=== PATIENT | female | born 1970 | race Caucasian/White ===

== ENCOUNTER 2024-04-22 18:38 | Inpatient (IN) | payer OTHER, SELFPAY ==
[2024-04-22 18:40] VITALS: BP 109/45; PULSE 98; RESP 16; TEMP 35.7; O2SAT 96; BMI 33.6
[2024-04-22 19:23] LABS: Absolute Lymphocyte Count 0.49 X10^3/uL (0.83-4.51); Absolute Neutrophil Count 9.5 X10^3/uL (2.0-7.7); Basophil# 0.05 X10^3/uL; Basophil% 0.5 % (0-1); Eosinophil# 0.04 X10^3/uL; Eosinophils% 0.4 % (0-5); Hematocrit 40.2 % (37-47); Hemoglobin 13.1 g/dL (12.0-15.0); Lymphocyte # 0.49 X10^3/ul (0.83-4.51); Lymphocyte % 4.6 % (19-41); Mean Corp Hgb Conc 32.6 g/dL (32-36); Mean Corpuscular Hgb 28.6 pg (27.0-32.0); Mean Corpuscular Volume 87.8 fL (81-99); Mean Platelet Vol. 10.8 fl (6.2-12.0); Monocyte# 0.44 X10^3/uL; Monocyte% 4.2 % (0-10); NRBC Flagged by Analyzer 0 % (0-5); Neutrophil % 89.8 % (47-70); POSITIVE DIFFERENTIAL YES; Platelet Count 132 K/mm3 (150-450); RBC Distribution Width CV 13.4 % (11.6-14.6); Red Blood Count 4.58 M/mm3 (4.2-5.4); White Blood Count 10.6 K/mm3 (4.4-11.0)
[2024-04-22 19:29] LABS: Internal QC Validated? YES +Cl - CLEAR BKGD; Pregnancy, Serum, hCG Quali. NEGATIVE Negative; Record Kit Lot#, Serum Preg. 772476
[2024-04-22 19:31] LABS: Differential Indicated SCAN CRITERIA MET
[2024-04-22 19:36] LABS: ALB/GLOB Ratio 0.8 RATIO (0.9-2.4); AST(SGOT) 10 U/L (15-37); Alanine Aminotransfer ALT/SGPT 21 U/L (13-56); Albumin, Serum 3.3 g/dL (3.2-5.0); Alkaline Phosphatase 71 U/L (45-117); Anion Gap 6 (5-15); BUN 11 mg/dL (7-18); BUN/Creat Ratio 14.7 RATIO (10-20); Chloride 100 mmol/L (98-107); Creatinine, Serum 0.75 mg/dL (0.55-1.02); EST Glomerular Filtration Rate 86 mL/min (>60); Est Glom Filt Rate - Afr Amer 104 mL/min (>60); Estimated Creatinine Clearance 97.03 ml/min; Globulin 3.9 g/dL (2.2-4.2); Glucose 122 mg/dL (74-106); Potassium 3.3 mmol/L (3.5-5.1); Protein, Total 7.2 g/dL (6.4-8.2); Sodium Level 135 mmol/L (136-145)
[2024-04-22 19:51] LABS: Mucous, Urine 0 SEEN /hpf (<or=2+); Red Blood Cells-Urine 0 SEEN /hpf (0-5)
[2024-04-22 19:52] LABS: Color, Urine Yellow (Yellow); Glucose, Dipstick Normal (Normal); Ketone-Dipstick 15 mg/dl (Negative); Leukocyte Esterase-Dipstick 500 /ul (Negative); Nitrite-Dipstick Negative (Negative); Occult Blood-Urine 10 /ul (Negative); Protein-Dipstick 15 mg/dl (Negative); Specific Gravity, Urine 1.005 (1.002-1.030); Urine Bilirubin Dipstick Negative (Negative); Urine Clarity Clear (Clear); Urine Urobilinogen Normal (Normal); Urine pH 6.5 (5.0 - 8.0)
[2024-04-22 20:00] LABS: Anisocytosis RARE; Platelet Estimate SLT DEC (ADEQ); Red Cell Morphology NORM C+C NORMAL (NORM C&C)
[2024-04-22 20:22] LABS: Bacteria RARE /hpf (None Seen); Squamous Epithelial Cells - UA 0-5 SEEN /hpf (5-10); Transitional Epithelial - Ur 0-5 SEEN /hpf (0-5); White Blood Cells 5-10 SEEN /hpf (0-5)
[2024-04-22 20:38] VITALS: BP 130/69; PULSE 93; RESP 16; TEMP 36.1; O2SAT 98
[2024-04-22 22:00] VITALS: BP 128/68; PULSE 94; RESP 18; TEMP 36.7; O2SAT 100
--- NOTE | 2024-04-22 22:34 | CT_ITS ---
EXAM: CT Abdomen And Pelvis W/ Contrast Injection HISTORY: Right sided abd pain TECHNIQUE: Routine protocol CT abdomen pelvis. IV Contrast: IV 100mL Isovue-370 . Oral Contrast: without. Sagittal and coronal images were reconstructed. RADIATION DOSAGE (If Supplied By Facility): CTDIvol = ( 17.99 ) mGy, DLP = ( 1125.45 ) mGycm Individualized dose optimization techniques were used for this CT. COMPARISON: None. LIMITATIONS: None. FINDINGS: LOWER CHEST: Minimal dependent atelectasis in the lung bases. LIVER: Enlarged. Fatty infiltration. GALLBLADDER/BILE DUCTS: Multiple gallstones in the gallbladder including a larger stone in the gallbladder neck. Diffuse marked gallbladder wall thickening, small amount of adjacent fluid and stranding. PANCREAS: Unremarkable. SPLEEN: Unremarkable. ADRENAL GLANDS: Unremarkable. KIDNEYS / URETERS: Unremarkable. BOWEL / MESENTERY: Unremarkable. No bowel obstruction. Several mildly enlarged lymph nodes throughout the mesentery, gastrohepatic, and gastrosplenic. APPENDIX: Identified and normal. No evidence of acute appendicitis. PERITONEUM: No free air. No free fluid. VESSELS: Abdominal aorta is normal caliber. RETROPERITONEUM: Multiple enlarged lymph nodes periaortic and pericaval, about the celiac axis, along the iliac chains. Largest aortocaval node is 1.6 cm in short axis. A cluster of enlarged nodes para-aortic at the level of the left renal vessels, largest 1.3 cm in short axis. REPRODUCTIVE ORGANS: There is a 5.8 x 5 cm low attenuation cystic structure in the right ovary. BLADDER: Unremarkable. ABDOMINAL WALL: Prominent inguinal lymph nodes bilaterally, with a larger node in the right inguinal region. BONES: No acute abnormality. OTHER: None. CT/Abdomen/Pelvis W IV Cont ONLY IMPRESSION: 1. Cholelithiasis with findings consistent with acute cholecystitis. 2. Retroperitoneal and mesenteric adenopathy of unknown etiology. This may be inflammatory, other process such as malignancy or lymphoma not excluded. 3. Right ovarian 6 cm cystic structure. Pelvic ultrasound suggested for further evaluation. Electronically Signed: Sissy Culver MD at 0:48 EDT ,
--- NOTE | 2024-04-22 22:34 | EKG12_ITS ---
Test Reason : Blood Pressure : / mmHG Vent. Rate : 100 BPM Atrial Rate : 100 BPM P-R Int : 148 ms QRS Dur : 094 ms QT Int : 350 ms P-R-T Axes : 055 077 110 degrees QTc Int : 451 ms Normal sinus rhythm Nonspecific ST and T wave abnormality Abnormal ECG Confirmed by JUAN CUTLER, SHIVA ([id number]), editor continuity and script ANITHA POON ([id number]) on 04/26/2024 2:03:58 PM Referred By: Confirmed By:SHIVA MARTINEZ MD
[2024-04-22 23:15] LABS: Lipase 17 U/L (13-75)
--- NOTE | 2024-04-22 23:21 | EX.ED.DYSGE1 ---
HPI History of Present Illness Chief Complaint: Abd Pain Narrative Narrative: Patient is a 53-year-old female with past medical history hypertension who presented to the emergency department the chief complaint of abdominal pain. Patient states that approximately 3 days ago she developed nausea vomiting and some abdominal discomfort. Patient states that she also had some fevers associated with this. She states that she has not had any previous abdominal surgeries. Patient denies any recent sick contacts. Patient rates her pain a 6 out of 10 states that she does not want a pain medication at this point time. [facility] Medical History Hypertension Allergy/AdvReac Type Severity Reaction Status Date / Time No Known Allergies Allergy Verified 04/22/24 18:39 Social History Smoking Status: Smoker, status unknown ROS ROS ED ROS Narrative Constitutional: Complains of fever and chills noted above denies headaches, lightness, dizziness Eyes: Denies double vision blurry vision changes vision Cardiovascular: Denies chest pain or palpitations Respiratory: Denies coughing wheezing shortness of breath Abdomen: Complains of abdominal pain nausea vomiting as noted above. Denies any black tarry stools or any blood in her stool : Denies any painful urination, hematuria and polyuria Neurological: Denies numbness, weakness, tingling Musculoskeletal: Denies back pain Skin: Denies rashes or lesions EXAM Physical Exam Narrative Exam Narrative: General: Patient lying in bed rest comfortably did not appear to be acute distress Head: Atraumatic, normocephalic Eyes: PERRL bilateral, EOMI bilateral, no conjunctival injection noted Neck: Soft, supple, trachea midline Cardiovascular: Regular rate and rhythm no murmurs gallops rubs noted Respiratory: Clear to auscultation bilaterally no rales rhonchi or wheezes noted Abdomen: Soft, nondistended, tender to palpation in the right upper and lower quadrants no rebound or guarding on exam, bowel sounds present x 4 Extremities: +5/5 strength noted in the bilateral upper and lower extremities Neurological: Patient following commands knew that she was at [facility] year is 2023 Skin: Warm, dry, intact Const Vital Signs: 04/22/24 18:40 04/22/24 20:38 04/22/24 22:00 Temperature 96.3 F L 97 F L 98.0 F Temperature Source Temporal Temporal Oral Pulse Rate 98 93 94 Respiratory Rate 16 16 18 Blood Pressure 109/45 L 130/69 H 128/68 H Blood Pressure Mean 66 89 88 Pulse Ox 96 98 100 Oxygen Delivery Method Room Air Room Air Room Air 04/23/24 00:00 04/23/24 00:00 04/23/24 02:00 Temperature 98.3 F 102.0 F H Temperature Source Oral Oral Pulse Rate 90 90 100 Respiratory Rate 16 16 18 Blood Pressure 121/60 H 121/60 H 121/50 H Blood Pressure Mean 80 80 73 Pulse Ox 99 95 Oxygen Delivery Method Room Air Room Air 04/23/24 04:00 Temperature 100.4 F H Temperature Source Oral Pulse Rate 88 Respiratory Rate 16 Blood Pressure 129/63 H Blood Pressure Mean 85 Pulse Ox 98 Oxygen Delivery Method Room Air MDM MDM MDM Narrative Medical decision making narrative: Patient is a 53-year-old female who presented to the emerged part with a chief complaint of abdominal pain since Thursday is progressively worsened. Patient will have workup performed here on the differential diagnose includes but not limited to appendicitis, pancreatitis, cholecystitis. Once workup is obtained reviewed she will be reevaluated. Patient CBC reviewed showed no evidence of leukocytosis white blood count normal at 10.6, hemoglobin stable 13.1, platelet count was noted 132, sodium was noted to be normal at 135, potassium was 3.3, creatinine normal at 0.75. Patient's total bilirubin elevated 1.20 AST and ALT were 10 and 21 respectively, test negative. Patient's urinalysis did not reveal any evidence of infection. Patient's CT abdomen pelvis with IV contrast reviewed and showed findings consistent with acute cholecystitis there was a right ovarian cystic structure noted recommending pelvic ultrasound. Called and discussed the results with Dr. Cox who is recommending obtaining ultrasounds of her right upper quadrant as well as the ovarian cyst. Patient was given Zosyn for her acute cholecystitis. Called Dr. Cox back with the ultrasound results and of the right upper quadrant ultrasound showed acute cholecystitis and her transvaginal ultrasound showed a 5.3 cm right adnexal cyst. Discussed the case and the results again with Dr. Cox who states that he will admit the patient for her acute cholecystitis. Patient was notified with all question concerns answered at bedside she is agreeable this plan. Lab Data Labs: Laboratory Results - last 24 hr 04/22/24 04/22/24 19:10 19:45 WBC 10.6 RBC 4.58 Hgb 13.1 Hct 40.2 MCV 87.8 MCH 28.6 MCHC 32.6 RDW Std Deviation 43.0 RDW Coeff of Loyd 13.4 Plt Count 132 L MPV 10.8 Immature Gran % (Auto) 0.500 Neut % (Auto) 89.8 H Lymph % (Auto) 4.6 L Sutter % (Auto) 4.2 Eos % (Auto) 0.4 Baso % (Auto) 0.5 Absolute Neuts (auto) 9.5 H Absolute Lymphs (auto) 0.49 L Nucleated RBC % 0 Differential Comment SEE COMMENT Platelet Estimate SLT DEC RBC Morphology NORM C+C Anisocytosis RARE Sodium 135 L Potassium 3.3 L Chloride 100 Carbon Dioxide 29.0 Anion Gap 6 BUN 11 Creatinine 0.75 Estim Creat Clear Calc 97.03 Est GFR (MDRD) Af Amer 104 Est GFR (MDRD) Non-Af 86 BUN/Creatinine Ratio 14.7 Glucose 122 H Calcium 9.0 Total Bilirubin 1.20 H AST 10 L ALT 21 Alkaline Phosphatase 71 Total Protein 7.2 Albumin 3.3 Globulin 3.9 Albumin/Globulin Ratio 0.8 L Lipase 17 Serum , Qual NEGATIVE Urine Color Yellow Urine Clarity Clear Urine pH 6.5 Ur Specific [place] 1.005 Urine Protein 15 H Urine Glucose (UA) Normal Urine Ketones 15 H Urine Occult Blood 10 H Urine Nitrite Negative Urine Bilirubin Negative Urine Urobilinogen Normal Ur Leukocyte Esterase 500 H Urine RBC 0 SEEN Urine WBC 5-10 SEEN Ur Squamous Epith Cells 0-5 SEEN Ur Transition Epith Cell 0-5 SEEN Urine Bacteria RARE Urine Mucus 0 SEEN Radiography Diagnostic Testing: Clinical Impression(s) from Imaging Studies Abdomen/Pelvis CT 04/22/24 22:34 IMPRESSION: 1. Cholelithiasis with findings consistent with acute cholecystitis. 2. Retroperitoneal and mesenteric adenopathy of unknown etiology. This may be inflammatory, other process such as malignancy or lymphoma not excluded. 3. Right ovarian 6 cm cystic structure. Pelvic ultrasound suggested for further evaluation. Electronically Signed: Sissy Culver MD at 0:48 EDT , Gallbladder Ultrasound 04/23/24 00:57 IMPRESSION: Cholelithiasis and possible acute cholecystitis. Electronically Signed: Candace Mcintyre MD at 5:32 EDT , Transvaginal US 04/23/24 00:57 IMPRESSION: 5.3 cm right adnexal cyst. Electronically Signed: Candace Mcintyre MD at 5:24 EDT , Discharge Plan Triage Chief Complaint: Abd Pain Other Complaint: Fever ED Provider: Ed Nash Dx/Rx/DC Orders Clinical Impression: Acute cholecystitis, Ovarian cyst Primary Care Provider: Neeraj Chou Referrals: Neeraj Chou DO [Primary Care Provider] - Print Language: Gibraltarian
[2024-04-23] VITALS (20 sets, daily range): BP systolic 106–129; BP diastolic 48–70; PULSE 74–100; RESP 16–18; TEMP 36.3–38.9; O2SAT 90–100; BMI 33.6
--- NOTE | 2024-04-23 00:57 | US_ITS ---
INDICATION: RUQ pain EXAMINATION: Ultrasound US Gallbladder (abdomen limited) TECHNIQUE: Stover scale and color doppler imaging was performed of the gallbladder. COMPARISON: No relevant prior comparison study available FINDINGS: Multiple shadowing gallstones. There is pericholecystic fluid with gallbladder wall thickening suggesting cholecystitis. The proximal common bile duct measures 9 mm in, which is above the 7 mm normal limits for the patient''s age. Sonographic Naik''s Sign: Positive. US/Gallbladder IMPRESSION: Cholelithiasis and possible acute cholecystitis. Electronically Signed: Candace Mcintyre MD at 5:32 EDT ,
--- NOTE | 2024-04-23 00:57 | US_ITS ---
INDICATION: cyst on ovary EXAMINATION: Ultrasound US Pelvis Non OB Complete With Transvaginal Imaging TECHNIQUE: Transabdominal and transvaginal pelvic ultrasound was performed. Grayscale, spectral waveform, and color flow Doppler evaluation of the adnexa. COMPARISON: No relevant prior comparison study available FINDINGS: UTERUS: Anteverted. The uterus measures 8.2 x 5.7 x 4 cm. There is no uterine mass. The endometrial stripe measures 3 mm in AP diameter which is within normal limits. RIGHT OVARY: 5.3 cm cystic lesion in the right adnexa. The right ovary is not identified with certainty. LEFT OVARY: Nonvisualized. FREE FLUID: None. US/Transvaginal Non- IMPRESSION: 5.3 cm right adnexal cyst. Electronically Signed: Candace Mcintyre MD at 5:24 EDT ,
[2024-04-23] MEDS: Piperacil/Tazobactam 3.375 GM in 0.9% Normal Saline (50mL MB+) 50 ML IV ×2 (01:17→22:17)
[2024-04-23] MEDS: Lactated Ringers 1,000 ML 100 ML IV (04:44)
[2024-04-23] MEDS: Acetaminophen 500 MG Tablet 1000 MG PO (04:44)
--- NOTE | 2024-04-23 07:36 | PCM.OPRPT ---
Report of Operation Date of Procedure: 04/23/24 Pre-Operative Diagnosis: Acute cholecystitis Post-Operative Diagnosis: Severe acute on chronic cholecystitis Surgery/Procedure Performed:: Laparoscopic cholecystectomy with intraoperative cholangiography Description of Surgical Findings:: ? Severely distended gallbladder taut with inflammation and adherent to the hepatic flexure inferiorly as well as the duodenum deeply/medially ? Cholangiogram showing significant tapering of the distal common duct without discrete filling defect and antegrade filling of the duodenum via the ampulla. Normal retrograde picture without extravasation ? Significant gallbladder wall thickness and adherence to underlying liver that when combined with patient's limited gallbladder mobility made it extremely challenging to establish separation between the gallbladder and the gallbladder fossa and resulted in inadvertent cholecystotomy Surgeon: Peter Cox legal mediator: Gian Hernandez Type of Anesthesia: General/Supplemental Anesthesiologist: Myron Lakhani Specimen's removed: gallbladder Drains: 15 British round Andi drain to right upper quadrant Estimated Blood Loss (mL): 50 Description of Procedure: After proper identification in the preoperative holding area the patient was brought to the operating room where she was positioned supine on the operating room table. Preoperatively SCDs were placed and antibiotics were administered (patient was dosed 2 g Ancef as it had been sometime since she received her initial dose of Zosyn via emergency medicine). General anesthesia was then induced. Patient's abdomen was prepped and draped in usual sterile fashion. A formal timeout was conducted to confirm both patient and the procedure. Procedure was begun with a supraumbilical incision which was extended deeply down to the level of the fascia (this was notably very shallow as patient's abdominal wall was markedly attenuated from her multiple prior pregnancies). The fascia was elevated and incised, as well as the peritoneum. A finger sweep was performed to ensure there were no underlying adhesions and a 12 mm balloon trocar was inserted. Pneumoperitoneum was established at 15 mmHg. Three additional trocars (all 5 mm) were placed in the epigastrium and in the right upper quadrant (as the procedure went on the patient's epigastric port site was replaced with a 12 mm port to accommodate instrumentation changes). Inspection of the peritoneum revealed no inadvertent injury to the viscera below. The gallbladder was visualized with severe inflammation rendering at both distended and taut. With the severity of this inflammation it was impossible to grasp the gallbladder so I proceeded with needle decompression using the suction network operations center engineer attachment. Even still, the gallbladder wall thickness precluded traction with a grasper using anything apart from a tenaculum and this latter device lead to tearing which I became concerned would pose a risk for a inadvertent diaphragm injury. Options were considered and I elected to open the anterior wall of the gallbladder with a laparoscopic LigaSure device and used this exposure as a handhold for a tooth grasper. Working in concert with a second tooth grasper we are able to elevate the gallbladder sufficiently to identify the infundibulum but it took some manual traction to dislodge the stone located in the gallbladder neck. Then, using careful dissection the peritoneum was opened and the structures of the hepatocystic triangle were delineated. The rind that was peeled away was notably very thick but was systematically thinned out and all small vessels were selectively cauterized. Once the cystic duct was circumferentially dissected and the cystic artery/node of [place] identified, a 12 mm Hem-o-tiffanie clip was placed across the duct and a partial ductotomy was created. Using an Coe Southold clamp, a cholangiocatheter was fed into the proximal segment of the cystic duct and clamped into place. Under fluoroscopy a cholangiogram was then obtained showing a standard length cystic duct flowing into a common bile duct with unobstructed (but notably tapered) antegrade flow of contrast into the duodenum. There was also retrograde flow through the common hepatic duct into the right and left hepatic ducts. Satisfied with this result, the cholangiocatheter was withdrawn and the proximal cystic duct was sealed with 2 additional Hem-o-tiffanie clips and the cystic duct was completely transected. The same process was used for the cystic artery after extending our dissection onto the body of the gallbladder. The gallbladder was then removed from the gallbladder fossa with the use of electrocautery. This became a painstaking process as significant energy was required to separate the densely adherent gallbladder from the underlying gallbladder fossa. Mobility remain limited despite the untethering of the attachments and I actually used a dome down approach the dissection at 1 point. Still despite a very intentional effort at the gallbladder from the gallbladder fossa while minimizing bleeding, and inadvertent cholecystotomy was created and this resulted in local spillage of gallstones. I attempted to regain the proper plane between the gallbladder and the liver, however, the density of the attachment precluded establishing a clear plane. Therefore I chose to remove the rest of the gallbladder and leave the remnant of the back wall by employing the laparoscopic LigaSure. Even with this decision the laparoscopic LigaSure was barely able to seal the gallbladder wall given its thickness so this process remained tedious. Ultimately the majority of the gallbladder was placed into an Endo Catch bag and the Endo Catch bag was closed. A second Endo Catch bag was inserted and one by one the gallstones were placed within this Endo Catch bag. I scoured the anterior surface of the abdominal viscera as well as Morison's pouch for any additional stones but did not find any so this bag was also closed. I then used argon beam coagulation to burn the adherent backwall of the gallbladder. At the conclusion of this treatment I was able to confirm hemostasis in the gallbladder fossa/remaining back wall. A 15 British round Andi drain was placed through the right upper quadrant 5 mm port site and positioned along the liver margin. Morison's pouch was irrigated and the effluent was suctioned free of the peritoneum. Hemostasis was again confirmed. Pneumoperitoneum was evacuated and the right upper quadrant drain was secured with 3-0 nylon suture at the skin. The fascia of the 12 mm port sites was closed with #1Vicryl. A total of 30 mL of anesthetic was injected at the port sites for postoperative pain control. The skin of each port site was then closed in subcuticular fashion using 4-0 Monocryl. Steri-Strips and bandages were applied as dressings. Patient tolerated the procedure well without any apparent complications. On emergence from their anesthetic the patient was taken to PACU for ongoing recovery. Complications None Admit VTE Documentation VTE Mechan Device Prophylaxis: SCD's Procedures Digestive [id number]: [id number] Laparo cholecystectomy/graph
--- NOTE | 2024-04-23 07:42 | HP.PCM_ITS ---
HPI - General General Date of Admission: 04/23/24 Chief Complaint: Abdominal pain HPI Narrative AUBREY RANGEL, is a 53 F who presents to [facility] with complaints of abdominal pain that began 3 days prior to her presentation. She shares she initially believed this was a case of the stomach flu with a upset stomach but she does confirm that her pain along has been more on the right side than the left side. In addition to nausea and vomiting she has had some diarrhea. She also notes that she has had new chills overnight. Patient's ER workup is notable for CBC with normal WBC but evidence of left shift. CT imaging of the abdomen pelvis shows markedly distended gallbladder with several large gallstones including 1 lodged in the gallbladder neck. This imaging was read as concerning for cholecystitis. Reflex ultrasound of the right upper quadrant largely confirms this diagnosis and shows evidence of a 9 mm common bile duct. Patient's chemistries do demonstrate a mildly elevated total bilirubin. Patient denies any awareness of prior problems with her gallbladder. Patient has no significant medical history apart from reported diagnosis of hypertension. In addition to the above CT imaging showed evidence of a large right adnexal cyst and some retroperitoneal adenopathy of unknown significance. She denies any prior abdominal surgeries. [facility] Medical History Hypertension Allergy/AdvReac Type Severity Reaction Status Date / Time No Known Allergies Allergy Verified 04/22/24 18:39 Social History Smoking Status: Smoker, status unknown Vital Signs Vital Signs Vital Signs: 04/22/24 18:40 04/22/24 20:38 04/22/24 22:00 Temperature 96.3 F L 97 F L 98.0 F Temperature Source Temporal Temporal Oral Pulse Rate 98 93 94 Respiratory Rate 16 16 18 Blood Pressure 109/45 L 130/69 H 128/68 H Blood Pressure Mean 66 89 88 Pulse Ox 96 98 100 Oxygen Delivery Method Room Air Room Air Room Air 04/23/24 00:00 04/23/24 00:00 04/23/24 02:00 Temperature 98.3 F 102.0 F H Temperature Source Oral Oral Pulse Rate 90 90 100 Respiratory Rate 16 16 18 Blood Pressure 121/60 H 121/60 H 121/50 H Blood Pressure Mean 80 80 73 Pulse Ox 99 95 Oxygen Delivery Method Room Air Room Air 04/23/24 04:00 04/23/24 06:00 04/23/24 06:07 Temperature 100.4 F H 98.7 F 98.7 F Temperature Source Oral Oral Pulse Rate 88 74 74 Respiratory Rate 16 18 18 Blood Pressure 129/63 H 109/63 109/63 Blood Pressure Mean 85 78 78 Pulse Ox 98 97 97 Oxygen Delivery Method Room Air Weight Weight: 202 lb Body Mass Index (BMI) 33.6 Physical Exam Const alert and oriented x3 Constitutional Narrative: Patient initially sleeping on my arrival but quickly arouses General Appearance: cooperative Resp normal respiratory effort GI GI Narrative: Obese, lax abdominal wall, mild striae superior to the umbilicus, effacement of the umbilicus without clearly palpable umbilical hernia defect. Soft, markedly tender to palpation right upper quadrant with positive Naik sign Results Lab / Micro Data 04/22/24 19:10 04/22/24 19:10 Labs: Laboratory Results - last 24 hr 04/22/24 19:10: WBC 10.6, RBC 4.58, Hgb 13.1, Hct 40.2, MCV 87.8, MCH 28.6, MCHC 32.6, RDW Std Deviation 43.0, RDW Coeff of Loyd 13.4, Plt Count 132 L, MPV 10.8, Immature Gran % (Auto) 0.500, Neut % (Auto) 89.8 H, Lymph % (Auto) 4.6 L, [place] % (Auto) 4.2, Eos % (Auto) 0.4, Baso % (Auto) 0.5, Absolute Neuts (auto) 9.5 H, A bsolute Lymphs (auto) 0.49 L, Nucleated RBC % 0, Differential Comment SEE COMMENT, Platelet Estimate SLT DEC, RBC Morphology NORM C+C, Anisocytosis RARE, Sodium 135 L, Potassium 3.3 L, Chloride 100, Carbon Dioxide 29.0, Anion Gap 6, BUN 11, Creatinine 0.75, Estim Creat Clear Calc 97.03, Est GFR (MDRD) Af Amer 104, Est GFR (MDRD) Non-Af 86, BUN/Creatinine Ratio 14.7, Glucose 122 H, Calcium 9.0, Total Bilirubin 1.20 H, AST 10 L, ALT 21, Alkaline Phosphatase 71, Total Protein 7.2, Albumin 3.3, Globulin 3.9, Albumin/Globulin Ratio 0.8 L, Lipase 17, Serum , Qual NEGATIVE 04/22/24 19:45: Urine Color Yellow, Urine Clarity Clear, Urine pH 6.5, Ur Specific [place] 1.005, Urine Protein 15 H, Urine Glucose (UA) Normal, Urine Ketones 15 H, Urine Occult Blood 10 H, Urine Nitrite Negative, Urine Bilirubin Negative, Urine Urobilinogen Normal, Ur Leukocyte Esterase 500 H, Urine RBC 0 SEEN, Urine WBC 5-10 SEEN, Ur Squamous Epith Cells 0-5 SEEN, Ur Transition Epith Cell 0-5 SEEN, Urine Bacteria RARE, Urine Mucus 0 SEEN Imaging Radiology Impression Abdomen/Pelvis CT 04/22/24 22:34 IMPRESSION: 1. Cholelithiasis with findings consistent with acute cholecystitis. 2. Retroperitoneal and mesenteric adenopathy of unknown etiology. This may be inflammatory, other process such as malignancy or lymphoma not excluded. 3. Right ovarian 6 cm cystic structure. Pelvic ultrasound suggested for further evaluation. Electronically Signed: Sissy Culver MD at 0:48 EDT , Gallbladder Ultrasound 04/23/24 00:57 IMPRESSION: Cholelithiasis and possible acute cholecystitis. Electronically Signed: Candace Mcintyre MD at 5:32 EDT , Transvaginal US 04/23/24 00:57 IMPRESSION: 5.3 cm right adnexal cyst. Electronically Signed: Candace Mcintyre MD at 5:24 EDT , Assessment & Plan Assessment/Plan (1) Acute cholecystitis: PLAN: Patient 53-year-old female who presents with just over 3 days history of progressive right upper quadrant abdominal discomfort associated with nausea, vomiting, and diarrhea. More recently she has become febrile and experiencing episodes of chills. This is concerning for progression of her infection. Her gallbladder does appear markedly distended and abnormal with inflammatory changes on CT imaging as well as ultrasound. Thus I am recommending rather urgent laparoscopic cholecystectomy with intraoperative cholangiography. Procedure was described in detail and I shared that we may have to make a larger than normal extraction site incision on the account of her large gallstones/gallbladder. Patient expresses and confirms understanding as well as an agreement to proceed soon as possible. Operating room has been put on notice. Patient has received IV Zosyn from emergency medicine. [facility] Peter Cox MD General Surgery Endocrine Surgery Pager: [facility] [address] [place] [address], [address] [place] [address] Office: [phone] Charges/Coding Visit Charges Inpatient E&M: 06574 Init Hosp L2
--- NOTE | 2024-04-23 07:48 | RAD_ITS ---
PROCEDURE: FLUOROSCOPIC GUIDED CHOLANGIOGRAM/PANCREATOGRAPHY DATE OF EXAMINATION: April 23, 2024. INDICATION: Female, 53 years old. Abdominal pain PHYSICIAN: Peter Cox MD FLUOROSCOPY TIME (if supplied): (1.25) minutes/seconds RADIATION DOSAGE (If Supplied By Facility): CTDIvol = ( ) mGy, DLP = ( ) mGycm CONSENT: The risks, benefits and alternatives to the procedure were explained to the patient, and the patient agreed to the procedure and signed the consent. PROCEDURE/TECHNIQUE: (All elements of maximal sterile barrier technique followed, including US elements as applicable) The risks, benefits, and alternatives to the procedure were explained to patient, and the patient agreed to the procedure and signed a consent form for the procedure. Comparison study: CT of abdomen and pelvis dated April 22, 2024 FINDINGS: Intraoperative surgical instrumentation seen in the milena hepatis region and overlying the liver. Contrast outlines the common bile duct and the main right and left intrahepatic biliary ducts. The origin of the cystic duct is present and opacified. The gallbladder has been surgically removed. No filling defects are identified. There is no biliary ductal dilatation. There is free passage into the duodenum. No extraluminal leakage of contrast is seen outside of the biliary ducts or bowel. RAD/Cholangiogram/ O R,Initial IMPRESSION: 1. Status post intraoperative cholangiogram. Electronically Signed: Crow Chirinos MD at 11:35 EDT ,
[2024-04-23] MEDS: 0.9% Normal Saline (1000mL) 1,000 ML 125 ML IV ×3 (08:43→22:17)
--- NOTE | 2024-04-23 08:45 | PCM.PRE.AN2 ---
ASA Classification* ASA Classification ASA Classification: 2 and E Assessment & Plan Anesthesia* Anesthesia Assessment Anesthesia Assessment: Discussed sedation and/or anesthesia options, risks, benefits, and alternatives with patient/parents/legal guardian/POA. Questions invited. The patient/parents/legal guardian/POA seems to understand and agrees to proceed with anesthesia plan. Reviewed the physical assessment, medical history, allergy history and patient home medications list prior to surgery/procedure/anesthetic and documented any changes. Performed airway and anesthesia risk assessments. Anesthesia Type Anesthesia Type: General Anesthesia Focused Assessment* Temperature: 98.1 F Pulse Rate: 89 Blood Pressure: 111/70 Respiratory Rate: 16 Pulse Ox: 97 Airway Assessment Mouth opens: >3 cm Mallampati Score: II Focused Labs Anesthesia Preop lab: CBC WBC 10.6 K/mm3 (4.4-11.0) 04/22/24 19:10 RBC 4.58 M/mm3 (4.2-5.4) 04/22/24 19:10 Hgb 13.1 g/dL (12.0-15.0) 04/22/24 19:10 Hct 40.2 % (37-47) 04/22/24 19:10 Plt Count 132 K/mm3 (150-450) L 04/22/24 19:10 CHEMISTRY Potassium 3.3 mmol/L (3.5-5.1) L 04/22/24 19:10 Sodium 135 mmol/L (136-145) L 04/22/24 19:10 BUN 11 mg/dL (7-18) 04/22/24 19:10 Creatinine 0.75 mg/dL (0.55-1.02) 04/22/24 19:10 Glucose 122 mg/dL (74-106) H 04/22/24 19:10 COAG Pre-Assessment Diagnosis/Proposed Procedure Planned Operative Procedure(s): Laproscopic Noris Anesthesia History 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 When Was Last Pacemaker Check QUESTION #4 FULL TEXT: You/Your Family Experience fever (hyperthermia) with Anesthesia Last Oral Intake Last Oral intake: Last Oral Intake NPO since 12:00 04/23/24 08:08 Meds taken in AM with sips of water? Meds patient instructed to PT NPO SINCE YESTERDY AT 04/23/24 08:08 take am of surgery NOON; 04/22/24 @ 1200 PONV PONV - enterprise applications manager: PONV - enterprise applications manager Female HX of Motion Sickness HX of N/V After Surgery Non-Smoker Duration of Surgery greater than 60 minutes Number of Risk Factors PONV Score Height & Weight Height & Weight: Anesthesia: Height & Weight Height 5 ft 5 in 04/23/24 08:08 Weight: 91.626 kg 04/23/24 08:08 Body Mass Index (BMI) 33.6 04/23/24 08:08 Respiratory Assessment Respiratory Assessment - enterprise applications manager: Respiratory Tract Infection Hx - enterprise applications manager Hx Respiratory Tract Infection No 04/23/24 08:08 STOP Sleep Apnea STOP Sleep Apnea - enterprise applications manager: STOP Sleep Apnea - enterprise applications manager Hx Hypertension No 04/23/24 08:08 Hx Sleep Apnea No 04/23/24 08:08 CPAP BIPAP Do you snore loudly (louder Yes 04/23/24 08:08 than talking or can be heard Do you often feel tired/ Yes 04/23/24 08:08 fatigued/ sleepy during daytime? Has anyone observed you stop No 04/23/24 08:08 breathing during sleep? STOP Results Positive 04/23/24 08:08 QUESTION #5 FULL TEXT : Do you snore loudly (louder than talking or can be heard through closed doors)? 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 Specify any problems Hx of Preganancy in last 3 Months Nurse Filling Out Transfusion & Questions: Date: Time: Patient unable to answer at this time (ie. confused, unrespo /Reproduction History /Reproductive History - enterprise applications manager: /Reproductive Hx- enterprise applications manager Hx Now No 04/23/24 08:08 Gestational Age (in weeks): EDC: Hx Hx Para Hx Section SAB No 04/23/24 08:08 Active Medications Active Medications: Current Medications Generic Name Dose Route Start Last Admin Trade Name Freq PRN Reason Stop Dose Admin Hydromorphone HCl 0.5 mg 04/23/24 07:40 Hydromorphone 0.5 Mg/0.5 Ml Syringe IV Q4H PRN PRN Pain Score 6-10 Sodium Chloride 1,000 mls @ 125 mls/hr 04/23/24 07:40 04/23/24 08:43 IV 125 mls/hr .Q8H CAMILO Administration Piperacillin Sod/Tazobactam 50 mls @ 12.5 mls/hr 04/23/24 22:00 Sod 3.375 gm/ Sodium Chloride IV Q8 CAMILO Pantoprazole Sodium 40 mg/ 110 mls @ 330 mls/hr 04/24/24 10:00 Sodium Chloride IV Q24 CAMILO Cefazolin Sodium 2 gm/ Sodium 110 mls @ 150 mls/hr 04/23/24 09:35 04/23/24 09:14 Chloride IV 04/23/24 10:18 Infused X1 ONE Infusion Nystatin 1 applic 04/23/24 10:00 Nystatin Powder 15gm Bottle TOPICAL BID CAMILO Protocol Ondansetron HCl 4 mg 04/23/24 07:40 Ondansetron 4 Mg/2 Ml Vial IV Q6H PRN PRN NAUSEA/VOMITING PFSH Medical History Hypertension Allergy/AdvReac Type Severity Reaction Status Date / Time No Known Allergies Allergy Verified 04/23/24 08:20 Social History Smoking Status: Smoker, status unknown Review of Systems (Anesthesia) ROS Narrative System reviewed and no additional complaints, except as documented.
[2024-04-23] MEDS: Cefazolin 2 GM in 0.9% Normal Saline (100mL Bag) 100 ML IV (09:14)
[2024-04-23] MEDS: Lactated Ringers 1,000 ML 15 ML IV ×2 (09:30→12:30)
--- NOTE | 2024-04-23 09:35 | GALL_PTH ---
PATHOLOGY RESULTS PATIENT: AUBREY RANGEL LOC: MS3 U#:[id number] AGE/SX: 53/F ROOM: DE317 RE04/23/[address]: Dr. Peter Cox MD : 1970 BED: 1 DIS: 04/25/2024 SPEC #: [id number] RECD: 04/25/24 09:20 STATUS: KRYSTYNA GRAYAnastacio #: [id number] OLEKSANDR: 04/23/24 09:[address]: Peter Cox DEPT: SURGICAL PATHOLOGY RECD BY: Bernadette Heller ENTERED: 04/25/24 11:04 SP TYPE: PINA FIGUEROA DR: Dr. Neeraj Chou DO Tissues: Gallbladder, NOS Procedures: Surgery Specimen Level III HEADER OPERATION: Laparoscopic, cholecystectomy with IOC PRE-OP DIAGNOSIS: Acute cholecystitis TISSUE SUBMITTED: Gallbladder and contents MICROSCOPIC DIAGNOSIS Gallbladder, cholecystectomy: Acute and chronic cholecystitis with mucosal ulceration and cholelithiasis. AM.mr 04/26/2024 MICROSCOPIC DESCRIPTION Slides are reviewed. GROSS DESCRIPTION Received is one container labeled with the patient's name and designated gallbladder. The specimen consists of a portion of posterior wall of is missing partially. The gallbladder measures 12.0 cm in length and up to 4.5 cm in diameter. The external surface is pink-schultz, smooth and glistening for the most part. Focally it is granular, hemorrhagic and contains cautery artifact. There are no contents in the gallbladder or in the container. Present in the gallbladder and in the container are multiple multifaced yellowish-brown stone fragments measuring in aggregate 6.5 x 6.0 x 2.0cm and 0.1 to 2.0cm in greatest dimension. The mucosa is bile-stained and without any mass lesions. The mucosa is congested and hemorrhagic. The gallbladder wall measures up to 1.1 cm in thickness. Process Plant Operator sections from the gallbladder and the cystic duct are submitted in two cassettes. / SJ: 04/25/2024 TC:2 CPT: 42474
[2024-04-23] MEDS: Bupiv/Epi 0.25% 30 ML Vial (13:12)
--- NOTE | 2024-04-23 13:50 | CPS ---
pt not in room yet, IS and PEP were placed in pt room on bedside table, will readdress and teach
--- NOTE | 2024-04-23 14:40 | PCM.POST.ANE ---
Anesthesia: Postop Eval I Current Vital Signs Temperature: 97.5 F Pulse Rate: 86 Blood Pressure: 103/60 Respiratory Rate: 14 Pulse Ox: 96 Oxygen Delivery Method: Nasal Cannula Assessment Airway patent: Yes Spontaneous unlabored respirations: Yes Mental status: Awake nausea: No Vomiting: No Anesthesia Complication: No Fluid Hydration Crystalloid volume administer (ml): 1,400 Total IV fluid infused: 1,400 Progress Note Anesthesia document: Postop Eval 1 completed: Yes
--- NOTE | 2024-04-23 15:00 | PCM.POSTANE2 ---
Anesthesia Postop Eval I Sum Postop Eval Completion status Anesthesia document: Postop Eval 1 completed: Yes Anesthesia Postop Eval I Summary Anesthesia Postop Eval I Summary: Anesthesia Postop Eval I: Assessment Summary Airway patent Yes 04/24/24 10:16 Spontaneous unlabored Yes 04/24/24 10:16 respirations Mental status Awake 04/24/24 10:16 nausea No 04/24/24 10:16 Vomiting No 04/24/24 10:16 Anesthesia Postop Eval I: Fluid Summary Crystalloid volume administer 1,400 04/24/24 10:16 (ml) Colloids volume administered ( ml) Blood Product volume administered (ml) Total IV fluid infused 1,400 04/24/24 10:16 Anesthesia Postop Eval I: Summary Notes Anesthesia Complication No 04/24/24 10:16 Anesthesia Complication Comment: Post-operative progress note Anesthesia: Postop Eval II Evaluation Mental status: Awake Pain Level: 2 nausea: No Vomiting: No
[2024-04-23] MEDS: oxyCODONE 5 MG Tablet PO ×2 (17:56→22:27)
[2024-04-23] MEDS: 0.9% Normal Saline (250mL Bag) 250 ML 15 ML IV (22:18)
[2024-04-23] MEDS: Nystatin Powder 15gm Bottle 1 APPLIC TOPICAL (22:27)
[2024-04-24] VITALS (9 sets, daily range): BP systolic 103–129; BP diastolic 52–64; PULSE 82–91; RESP 14–18; TEMP 36.4–37.3; O2SAT 87–97
[2024-04-24] MEDS: oxyCODONE 5 MG Tablet PO (05:31)
[2024-04-24] MEDS: Piperacil/Tazobactam 3.375 GM in 0.9% Normal Saline (50mL MB+) 50 ML IV ×3 (05:31→22:12)
[2024-04-24] MEDS: 0.9% Normal Saline (1000mL) 1,000 ML 125 ML IV ×3 (05:32→22:13)
[2024-04-24 05:57] LABS: Absolute Lymphocyte Count 0.65 X10^3/uL (0.83-4.51); Absolute Neutrophil Count 9.7 X10^3/uL (2.0-7.7); Basophil# 0.03 X10^3/uL; Basophil% 0.3 % (0-1); Hematocrit 37.5 % (37-47); Hemoglobin 12.2 g/dL (12.0-15.0); Lymphocyte # 0.65 X10^3/ul (0.83-4.51); Lymphocyte % 5.8 % (19-41); Mean Corp Hgb Conc 32.5 g/dL (32-36); Mean Corpuscular Hgb 28.7 pg (27.0-32.0); Mean Corpuscular Volume 88.2 fL (81-99); Mean Platelet Vol. 11.2 fl (6.2-12.0); Monocyte# 0.81 X10^3/uL; Monocyte% 7.2 % (0-10); NRBC Flagged by Analyzer 0 % (0-5); Neutrophil % 86.2 % (47-70); Platelet Count 163 K/mm3 (150-450); RBC Distribution Width CV 13.7 % (11.6-14.6); RBC Distribution Width SD 44.5 fl (35.1-43.9); Red Blood Count 4.25 M/mm3 (4.2-5.4); White Blood Count 11.3 K/mm3 (4.4-11.0)
[2024-04-24 06:27] LABS: ALB/GLOB Ratio 0.6 RATIO (0.9-2.4); AST(SGOT) 30 U/L (15-37); Alanine Aminotransfer ALT/SGPT 36 U/L (13-56); Albumin, Serum 2.3 g/dL (3.2-5.0); Alkaline Phosphatase 80 U/L (45-117); Anion Gap 7 (5-15); BUN 6 mg/dL (7-18); BUN/Creat Ratio 10.3 RATIO (10-20); Calcium,Total 8.1 mg/dL (8.5-10.1); Chloride 104 mmol/L (98-107); Creatinine, Serum 0.58 mg/dL (0.55-1.02); EST Glomerular Filtration Rate 115 mL/min (>60); Est Glom Filt Rate - Afr Amer 139 mL/min (>60); Estimated Creatinine Clearance 125.46 ml/min; Globulin 3.6 g/dL (2.2-4.2); Glucose 137 mg/dL (74-106); Potassium 3.1 mmol/L (3.5-5.1); Protein, Total 5.9 g/dL (6.4-8.2); Sodium Level 135 mmol/L (136-145)
--- NOTE | 2024-04-24 10:21 | PN.SURG_ITS ---
Subjective Subjective Patient seen and examined during AM rounds. She has found in bed complaining of persistent abdominal discomfort. She reports that she is not able to confirm that she feels better than when she presented, but does state that her discomfort seems to be coming from her incisions rather than from deeply as when she presented. She confirms that she has tolerated diet. Nursing shares that patient has described being in too much pain to be cooperative with request to mobilize out of bed. Objective Data Objective Data Vital Signs: Vital Signs Temp Pulse Resp BP Pulse Ox O2 Del Method O2 Flow Rate 97.5 F L 86 14 103/60 96 Nasal Cannula 2 04/24/24 10:16 04/24/24 10:16 04/24/24 10:16 04/24/24 10:16 04/24/24 10:16 04/24/24 10:16 04/24/24 08:00 Oxygen Flow Rate (L/min) 2 Oxygen Delivery Method Nasal Cannula Weight: 201 lb 15.8 oz Body Mass Index (BMI) 33.6 Intake & Output: Intake and Output for Last 24 Hours 04/22/24 04/23/24 04/24/24 23:59 23:59 23:59 Intake Total 3793.33 / 4393.33 1956.25 / 1956.25 Output Total 35 / 435 400 / 400 Balance 3758.33 / 3958.33 1556.25 / 1556.25 Lab / Micro Data 04/24/24 05:31 04/24/24 05:31 Labs: Laboratory Results - last 24 hr 04/24/24 05:31: WBC 11.3 H, RBC 4.25, Hgb 12.2, Hct 37.5, MCV 88.2, MCH 28.7, MCHC 32.5, RDW Std Deviation 44.5 H, RDW Coeff of Loyd 13.7, Plt Count 163, MPV 11.2, Immature Gran % (Auto) 0.500, Neut % (Auto) 86.2 H, Lymph % (Auto) 5.8 L, [place] % (Auto) 7.2, Eos % (Auto) 0.0, Baso % (Auto) 0.3, Absolute Neuts (auto) 9.7 H, Absolute Lymphs (auto) 0.65 L, Nucleated RBC % 0, Sodium 135 L, Potassium 3.1 L, Chloride 104, Carbon Dioxide 25.0, Anion Gap 7, BUN 6 L, Creatinine 0.58, Estim Creat Clear Calc 125.46, Est GFR (MDRD) Af Amer 139, Est GFR (MDRD) Non-Af 115, BUN/Creatinine Ratio 10.3, Glucose 137 H, Calcium 8.1 L, Total Bilirubin 1.10 H, AST 30, ALT 36, Alkaline Phosphatase 80, Total Protein 5.9 L, Albumin 2.3 L, Globulin 3.6, Albumin/Globulin Ratio 0.6 L Radiography Diagnostic Testing: Radiology Impression Cholangiogram 04/23/24 07:48 IMPRESSION: 1. Status post intraoperative cholangiogram. Electronically Signed: Crow Chirinos MD at 11:35 EDT , Physical Exam Const oriented x3 Constitutional Narrative: Patient appears to be in mild distress from her persistent abdominal discomfort and grabs my hand every time I attempt to examine her. Resp Resp Narrative: Shallow inspirations GI GI Narrative: Abdominal distention present (some of this is expected given patient's severely attenuated abdominal wall), soft, tender to palpation around supraumbilical and right upper quadrant incisions. Voluntary guarding as discussed above. Right upper quadrant drain with minimal amount of serosanguineous output. Assessment & Plan Assessment/Plan (1) Acute cholecystitis: (2) Status post laparoscopic cholecystectomy: PLAN: Plan Patient 53-year-old female who presents with just over 3 days history of progressive right upper quadrant abdominal discomfort associated with nausea, vomiting, and diarrhea. She is now postoperative day 1 from a difficult but uncomplicated laparoscopic cholecystectomy with intraoperative cholangiography. Procedure difficulty owing to severe inflammation encountered within patient's gallbladder?both acutely and chronically. Neuro: Continue as needed hydromorphone and oxycodone, however, try to decrease patient's dependence on this as it appears to be affecting her wakefulness and even depth of respiratory effort. Toradol scheduled and acetaminophen added. Pulm/CV: Continue supplemental O2 as needed but look to wean. Continue regular monitoring of vital FEN/GI: Hypokalemic this a.m.?replace orally. Currently on clear liquid diet denying much of an appetite. Will look to revisit this issue and advance as tolerated. : Urine output adequate Heme/ID: Hemoglobin within 1 g from admission despite operative losses (estimated be minimal) and perioperative fluid administration. No signs of ongoing losses. Zosyn continued on the account of local contamination with gallstones that were removed at the time of the operation. Patient's right upper quadrant drain is clear. Will maintain until patient appears clinically improved. Endo: No current concerns Proph: SCDs, patient encouraged to ambulate Dispo: Continue inpatient stay until patient looking clinically improved Peter Cox MD General Surgery Endocrine Surgery Pager: [facility] [place] [facility] [address] [place] [address], [address] [place] [address] Office: [phone] Charges/Coding Visit Charges Inpatient E&M: 10872 Subs Hosp L2
[2024-04-24] MEDS: Nystatin Powder 15gm Bottle 1 APPLIC TOPICAL ×2 (10:40→22:12)
[2024-04-24] MEDS: Potassium Chloride Oral Tablet 20 MEQ 40 MEQ PO (10:41)
[2024-04-24] MEDS: Pantoprazole Sodium 40 MG in 0.9% Normal Saline (100mL MB+) 100 ML 330 MG IV (10:41)
[2024-04-24] MEDS: Ketorolac 30 MG/ML Syringe IV ×2 (10:42→17:51)
[2024-04-24] MEDS: Acetaminophen 325 MG Tablet 650 MG PO (12:43)
[2024-04-25] MEDS: Ketorolac 30 MG/ML Syringe IV ×2 (00:57→06:32)
[2024-04-25] MEDS: 0.9% Normal Saline (1000mL) 1,000 ML 125 ML IV (05:08)
[2024-04-25] MEDS: Piperacil/Tazobactam 3.375 GM in 0.9% Normal Saline (50mL MB+) 50 ML IV (05:08)
[2024-04-25 05:14] VITALS: BP 119/51; PULSE 74; RESP 18; TEMP 36.9; O2SAT 100
[2024-04-25] MEDS: 0.9% Saline Lock 10 ML Syringe IV (06:32)
[2024-04-25 06:55] LABS: Absolute Lymphocyte Count 0.67 X10^3/uL (0.83-4.51); Absolute Neutrophil Count 7.3 X10^3/uL (2.0-7.7); Basophil# 0.04 X10^3/uL; Basophil% 0.5 % (0-1); Eosinophil# 0.05 X10^3/uL; Eosinophils% 0.6 % (0-5); Hemoglobin 11.2 g/dL (12.0-15.0); Lymphocyte # 0.67 X10^3/ul (0.83-4.51); Lymphocyte % 7.8 % (19-41); Mean Corpuscular Hgb 28.9 pg (27.0-32.0); Mean Corpuscular Volume 90.2 fL (81-99); Monocyte% 5.8 % (0-10); NRBC Flagged by Analyzer 0 % (0-5); Neutrophil # 7.33 X10^3/uL (2.7-7.7); Neutrophil % 84.8 % (47-70); Platelet Count 175 K/mm3 (150-450); RBC Distribution Width CV 14.2 % (11.6-14.6); RBC Distribution Width SD 46.9 fl (35.1-43.9); Red Blood Count 3.88 M/mm3 (4.2-5.4); White Blood Count 8.6 K/mm3 (4.4-11.0)
[2024-04-25 07:17] LABS: ALB/GLOB Ratio 0.5 RATIO (0.9-2.4); AST(SGOT) 31 U/L (15-37); Alanine Aminotransfer ALT/SGPT 43 U/L (13-56); Albumin, Serum 2.1 g/dL (3.2-5.0); Alkaline Phosphatase 92 U/L (45-117); Anion Gap 6 (5-15); BUN 8 mg/dL (7-18); BUN/Creat Ratio 14.2 RATIO (10-20); Chloride 106 mmol/L (98-107); Creatinine, Serum 0.56 mg/dL (0.55-1.02); EST Glomerular Filtration Rate 119 mL/min (>60); Est Glom Filt Rate - Afr Amer 144 mL/min (>60); Estimated Creatinine Clearance 129.94 ml/min; Globulin 3.9 g/dL (2.2-4.2); Glucose 115 mg/dL (74-106); Potassium 3.2 mmol/L (3.5-5.1); Sodium Level 140 mmol/L (136-145)
[2024-04-25 07:58] VITALS: O2SAT 96
[2024-04-25 08:48] VITALS: BP 110/64; PULSE 94; RESP 16; TEMP 37.1; O2SAT 91
[2024-04-25] MEDS: Potassium Chloride Oral Tablet 20 MEQ 60 MEQ PO (09:10)
[2024-04-25 09:45] VITALS: O2SAT 93; O2SAT 95
--- NOTE | 2024-04-25 09:45 | NURSING ---
pt using i.s. and sitting up on side of bed to help with deep breathing. encouraged ambulating in hallway with spouse
[2024-04-25] MEDS: Nystatin Powder 15gm Bottle 1 APPLIC TOPICAL (10:36)
[2024-04-25] MEDS: Pantoprazole Sodium 40 MG in 0.9% Normal Saline (100mL MB+) 100 ML 330 MG IV (10:37)
--- NOTE | 2024-04-25 11:05 | DS.PCM_ITS ---
Providers Date of Admission: 04/23/24 Date of Discharge: 04/25/24 Primary Care Physician: Dr. Neeraj Chou DO Reason For Visit: ACUTE CHOLECYSTITIS Diagnosis Discharge Diagnosis (1) Acute cholecystitis: Status: Acute Code(s): K81.0 - Acute cholecystitis (2) Status post laparoscopic cholecystectomy: Status: Acute Code(s): Z90.49 - Acquired absence of other specified parts of digestive tract Medications at Discharge Home Medications sertraline 100 mg tablet 100 mg PO DAILY Depression 04/23/24 acetaminophen 325 mg tablet 650 mg (2 x 325 mg) PO Q4H PRN PRN Pain 1-10 Or Fever #0 tabs 04/25/24 oxycodone 5 mg tablet 5 mg PO Q6H PRN PRN Pain Score 6-10 3 days #9 tabs 04/25/24 Hospital Course Operations cholecystecomy Summary of Care Provided Minutes Spent on Discharge: 30 Hospital Course: Patient is a 53 y/o F who presented with right upper quadrant pain. CT scan of the ab/pel demonstrated findings consistent with acute cholecystitis, retroperitoneal and mesenteric adenopathy of unknown etiology, and right ovarian cyst. RUQ ultrasound demonstrated cholelithiasis possible acute cholecystitis. Transvaginal u/s was obtained demonstrating a 5.3 cm right [address]nexal cyst. Dr. Cox admitted the patient and performed a laparoscopic cholecystectomy with intraoperative cholangiogram on 04/23/24. Patient tolerated the procedure well. She has had an uneventful hospitalization. Upon discharge, she denies incisional pain, nausea, vomiting. She is tolerating a diet well. Physical Exam GI GI Narrative: Abdomen- incisions c/d/i. No erythema or infection noted. [facility] drain removed at bedside. Single suture left in place. Dry gauze dressing placed over top secured with tape. Weight / BMI Weight Weight: 201 lb 15.8 oz Body Mass Index (BMI) 33.6 ABG / Lab / Microbiology Data 04/25/24 06:33 04/25/24 06:33 Laboratory: Laboratory Results - last 24 hr 04/25/24 06:33: WBC 8.6, RBC 3.88 L, Hgb 11.2 L, Hct 35.0 L, MCV 90.2, MCH 28.9, MCHC 32.0, RDW Std Deviation 46.9 H, RDW Coeff of Loyd 14.2, Plt Count 175, MPV 11.0, Immature Gran % (Auto) 0.500, Neut % (Auto) 84.8 H, Lymph % (Auto) 7.8 L, [place] % (Auto) 5.8, Eos % (Auto) 0.6, Baso % (Auto) 0.5, Absolute Neuts (auto) 7.3, Absolute Lymphs (auto) 0.67 L, Nucleated RBC % 0, Sodium 140, Potassium 3.2 L, Chloride 106, Carbon Dioxide 27.0, Anion Gap 6, BUN 8, Creatinine 0.56, Estim Creat Clear Calc 129.94, Est GFR (MDRD) Af Amer 144, Est GFR (MDRD) Non-Af 119, BUN/Creatinine Ratio 14.2, Glucose 115 H, Calcium 8.0 L, Total Bilirubin 1.30 H, AST 31, ALT 43, Alkaline Phosphatase 92, Total Protein 6.0 L, Albumin 2.1 L, Globulin 3.9, Albumin/Globulin Ratio 0.5 L D/C Instructions Discharge Diet: Light diet - advance as tolerated Discharge Activity: May Shower (48 hours after discharge) Lifting Restrictions: 15 pounds for 2 weeks. No strenuous activity for 4 weeks Call your doctor if your incision/area has: Continuous Slow Oozing, Sudden Increased Bleeding, Increased Pain/ Swelling, Increased Redness, Foul Smelling Discharge and Swelling at the incision site Call your doctor if you observe: Fever of 101 or Higher Suture Line Care: Avoid Pulling/Pushing and Avoid Pinching/Bending Remove Dressing in: 2 days Cleanse incision/area with: Soap & Water Additional Dressing/Incision Instructions: Remove plastic dressings and drain dressing prior to showering. Steri-strips may be removed in 1 week. Please Follow Up With: Alysha Cho PA-C When: Follow-up appointment scheduled for 05/10 at 1:00 pm. Please arrive 15 minutes prior to appointment. Meaningful Use Info Meaningful Use Meaningful Use Diagnoses (Choose all that apply): None applicable Ischemic Stroke Statin Dosing Therapy Reference: STATIN DOSE THERAPY REFERENCE: * Patients > 75 years receive moderate or high dose statin therapy. * Patients 75 years or YOUNGER should receive HIGH intensity statin dose unless contraindicated. You will be required to document reason for non-treatment if statin daily dose does not meet guidelines. HIGH DOSE STATIN THERAPY DAILY Atorvastatin > than or = to 40 mg Rosuvastatin > than or = to 20 mg Amlodipine + Atorvastatin > than or = to 2.5/40 mg Ezetimibe + Simvastatin 10/80 mg Simvastatin 80mg Discharge Plan Admission Admit Date/Time: 04/23/24 07:40 Primary Reason for Your Visit: Acute cholecystitis Attending Provider: Peter Cox Primary Care Provider: Neeraj Chou Instructions Additional Instructions / Restrictions: Cholecystectomy Diet ? Start light with soups and soft bland foods. You may advance diet as tolerated. Activity ? I encourage walking. You may go up steps, one at a time. ? Do not swim or use hot tubs for 2 weeks. ? For comfort, you may use warm compresses or ice as needed for 15-20 minutes at a time. Lifting ? You may lift up to 15 pounds for 2 weeks. No strenuous activity for 4 weeks. Dressings/Incision ? You may shower OVER your plastic dressings in 2 days ? Do NOT tub bathe for 1 week ? Leave plastic dressings on for 2 days. ? When plastic dressings are removed, you will find steri strips. It is okay to continue showering with them in place, pat them dry. ? You may remove steri-strips after 1 week. We recommend getting them soaking wet for easier removal. Medications ? Anesthesia used during surgery and pain medications may cause constipation. I recommend initiating on the day of surgery a fiber supplement like, Metamucil, Citrucel, FiberCon, Benefiber, or a generic form of these medications. 1 heaping tablespoon in water daily. You may continue to utilize any bowel regimen or oral laxatives that you routinely take. ? As long as you are not intolerant to Tylenol, acetaminophen, ibuprofen, Motrin, Advil, Aleve, or similar medications, I would recommend transitioning to these [id number] medicines as soon as possible instead of continued use of narcotic pain medication. Follow up ? Your follow-up appointment is scheduled for 05/10 at 1:00 pm. If you are unable to attend this appointment or have additional questions, you should call [facility], at [phone] option 2. Discharge Orders/Prescriptions Prescriptions: New acetaminophen 325 mg Tablet 650 mg PO Q4H PRN PRN (Reason: Pain 1-10 Or Fever) Qty: 0 0RF oxycodone 5 mg Tablet 5 mg PO Q6H PRN PRN (Reason: Pain Score 6-10) 3 Days Qty: 9 0RF Continued sertraline 100 mg tablet 100 mg PO DAILY Referrals / Follow Up: Neeraj Chou DO [Primary Care Provider] - Alysha Cho PA-C [Med Staff - [facility] Practice Prof] - 05/10/24 1:00 pm Disposition Disposition (needs filled in before D/C Order can be placed): Home, Self Care Charges/Coding Visit Charges Inpatient E&M: 28866 Disch Hosp (No charge)
[2024-04-25 12:17] VITALS: BP 111/69; PULSE 98; RESP 16; TEMP 36.6; O2SAT 100
--- NOTE | 2024-04-25 12:20 | CASEMGMT ---
KAREN KERR Assessment: Face to Face with pt for initial transition planning/care coordination assessment. KAREN KERR introduced self and role at [facility], pt voices understanding and consents to assessment. Pt is A&O x4 and answers all questions appropriately at this time. Pt sitting up in chair with nurse and at bedside. Care providers, pharmacy, and demographics verified/updated. Admitting Dx: acute cholecystitis Strata Score: 1 PCP:José Antonio Specialists:Denies Preferred Pharmacy:[facility] Insurance: [employer] Prescription Benefit: no LNOK: Clinton Manriquez, friend Living Arrangements: Pt lives with and 10 children in a two story home with 1 step to enter. Pt reports she is I in ADL and IADLs. Pt denies concerns at home. 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 DME:Denies HHC/SNF: Denies hx of Pt states no concerns with going home at time of dc. Pt states no further concerns/needs. CM to follow. Advised pt to ask CM if any further question/concerns/needs arise, voices understanding. Pt Goal: Home Plan: Home Ghada JONES CM
== END 2024-04-25 12:57 | disposition home or self-care (01) | DRG 419 ==
LOC: ED 04-23 08:24 → MS3 04-23 08:28
PROVIDERS: Admitting Provider Surgery; Emergency Provider Emergency Medicine; PCP Family Medicine; Visit Provider Surgery
PROC: 0FT44ZZ Resection of Gallbladder, Percutaneous Endoscopic Approach (ICD-10-PCS; CPT 47610; principal; 2024-04-23 09:15)
DX: K81.0 Acute cholecystitis (principal); F17.200 Nicotine dependence, unspecified, uncomplicated; I10 Essential (primary) hypertension; K82.8 Other specified diseases of gallbladder; N83.201 Unspecified ovarian cyst, right side
CPT/HCPCS: 36415; 74177; 74300; 76000; 76705; 76830; 80053; 81001; 83690; 84703; 85025; 88304; 93005; 94668; 97162; 97166; 99285; J7030; J7050; J7120; Q9967; A4216; J2405